=== PATIENT | male | born 1950 | race Caucasian/White ===

== ENCOUNTER → 2017-06-11 | Day surgery (SDC) | payer MEDICARE, MEDICAID ==
[~2017-06-11] VITALS: Ht 172.7 cm; Wt 85.9 kg
[~2017-06-11] MED LIST: ASPIRIN LO-DOSE81 MG PO; B COMPLEX1 EACH PO; CREON DR 24,001 EACH PO; CRESTOR10 MG PO; DESYREL100 MG PO; MULTI VITAMIN1 EACH PO; NUCYNTA75 MG PO; PRINIVIL OR ZES10 MG PO; PROTONIX40 MG PO; TOPROL XL 5050 MG PO; VIAGRA100 MG PO; ZANTAC150 MG PO; ZYPREXA20 MG PO
== END | disposition disaster alternative care site (69) ==
LOC: GPOC 06-10 15:00 → GEND 09:52 → GPOC 10:00
PROC: 0DB58ZX Excision of Esophagus, Via Natural or Artificial Opening Endoscopic, Diagnostic (ICD-10-PCS; principal; 2017-06-11)
PROC: 0DB68ZX Excision of Stomach, Via Natural or Artificial Opening Endoscopic, Diagnostic (ICD-10-PCS; 2017-06-11)
PROC: 0D758ZZ Dilation of Esophagus, Via Natural or Artificial Opening Endoscopic (ICD-10-PCS; 2017-06-11)
PROC: 0DJ08ZZ Inspection of Upper Intestinal Tract, Via Natural or Artificial Opening Endoscopic (ICD-10-PCS; 2017-06-11)
DX: K29.50 Unspecified chronic gastritis without bleeding (principal); K31.9 Disease of stomach and duodenum, unspecified; K44.9 Diaphragmatic hernia without obstruction or gangrene; M19.042 Primary osteoarthritis, left hand; K86.1 Other chronic pancreatitis; K21.9 Gastro-esophageal reflux disease without esophagitis; F40.240 Claustrophobia; F31.9 Bipolar disorder, unspecified; F41.9 Anxiety disorder, unspecified; I25.10 Atherosclerotic heart disease of native coronary artery without angina pectoris; E78.00 Pure hypercholesterolemia, unspecified; I10 Essential (primary) hypertension; I25.2 Old myocardial infarction; G47.30 Sleep apnea, unspecified; L40.9 Psoriasis, unspecified; E78.2 Mixed hyperlipidemia; F17.210 Nicotine dependence, cigarettes, uncomplicated; F10.21 Alcohol dependence, in remission; Z98.890 Other specified postprocedural states; Z79.82 Long term (current) use of aspirin; Z79.899 Other long term (current) drug therapy
CPT/HCPCS: C1726; J2001; J7030